=== PATIENT | female | born 1930 | race Hispanic/Latino ===

== ENCOUNTER 2018-06-23 16:16 | Inpatient (IN) | payer MEDICARE ==
[~2018-06-23] VITALS: Ht 160 cm; Wt 59.6 kg
[2018-06-23] MEDS: ALBUTEROL SULF 0.083% NEB SOLN 3 ML NEB NEB SCH (00:12)
[~2018-06-23 16:16] MED LIST: FERROUS SULFAT325 MG PO; OMEPRAZOLE20 MG PO; OXYBUTYNIN CHLOR5 MG PO; PRAVASTATIN SOD10 MG PO; ULTRAM 50MG50 MG PO
[2018-06-23] MEDS ORDERED: IPRATROPIUM BROMIDE 0.02% 2.5 ML NEB NEB STA (16:20)
[2018-06-23] MEDS ORDERED: ALBUTEROL SULF 0.083% NEB SOLN 3 ML NEB NEB STA (16:20)
[2018-06-23] MEDS ORDERED: SODIUM CHLORIDE 0.9% 1000ML 1,000 ML IV STA (16:20)
[2018-06-23 16:39] LABS: BASOPHILS % 0.1 % (0.0-1.0); EOSINOPHILS # (AUTO) 0.1 (0.0-0.4); EOSINOPHILS % 0.7 % (0.0-6.0); HEMATOCRIT 33.5 % (34.2-44.1); HEMOGLOBIN 10.9 g/dL (12.0-16.0); LYMPHOCYTES # (AUTO) 1.1 (1.0-3.2); LYMPHOCYTES % 15.2 % (18.0-39.1); MEAN CORPUSCULAR HEMOGLOBIN 31.1 pg (28-32); MEAN CORPUSCULAR HGB CONC 32.5 g/dL (31-35); MEAN CORPUSCULAR VOLUME 95.7 fL (81-99); MONOCYTES # (AUTO) 0.8 (0.2-0.8); NEUTROPHILS # (AUTO) 5.1 (2.1-6.9); NEUTROPHILS % 72.4 % (38.7-80.0); PLATELET COUNT 336 x10e3/uL (140-360); RED CELL DISTRIBUTION WIDTH 12.6 % (11.7-14.4)
[2018-06-23] MEDS ORDERED: CEFTRIAXONE SOD 1 GM VIAL IV ONE (16:45)
[2018-06-23 16:48] LABS: INR 0.93; PROTHROMBIN TIME 13.3 seconds (11.9-14.5)
[2018-06-23 16:49] LABS: PARTIAL THROMBOPLASTIN TIME 36.7 seconds (23.8-35.5)
[2018-06-23 16:59] LABS: ALANINE AMINOTRANSFERASE 15 IU/L (0-55); ALBUMIN 3.8 g/dL (3.5-5.0); ALKALINE PHOSPHATASE 88 IU/L (40-150); ANION GAP 15.7 mmol/L (8-16); BLOOD UREA NITROGEN 19 mg/dL (7-26); BUN/CREATININE RATIO 24 (6-25); CALCIUM 9.8 mg/dL (8.4-10.2); CARBON DIOXIDE 24 mmol/L (22-29); CHLORIDE 101 mmol/L (98-107); CREATINE KINASE 47 IU/L (29-168); EST GLOMERULAR FILTRATION RATE > 60 ML/MIN (60-); GLUCOSE 115 mg/dL (74-118); LIPASE 39 U/L (8-78); POTASSIUM 3.7 mmol/L (3.5-5.1); SODIUM 137 mmol/L (136-145)
[2018-06-23 17:01] LABS: CLARITY,URINE HAZY (CLEAR); COLOR,URINE YELLOW (YELLOW); LEUKOCYTE ESTERASE ,URINE NEGATIVE (NEGATIVE); NITRITE,URINE NEGATIVE (NEGATIVE)
[2018-06-23 17:02] LABS: BILIRUBIN,URINE NEGATIVE (NEGATIVE); KETONES,URINE NEGATIVE (NEGATIVE); PROTEIN,URINE DIPSTICK NEGATIVE (NEGATIVE); URINE UROBILINOGEN 0.2 mg/dL (0.2 - 1)
[2018-06-23 17:05] LABS: BACTERIA,URINE RARE /HPF; EPITHELIAL CELLS,URINE FEW /LPF; WBC,URINE (MAN) 0-5 /HPF (0-5)
[2018-06-23 17:18] LABS: THYROID STIMULATING HORMONE 1.049 uIU/mL (0.350-4.940)
[2018-06-23] MEDS ORDERED: DOXYCYCLINE HY100 MG PO (17:51)
[2018-06-23] MEDS ORDERED: PREDNISONE1 MG (17:51)
--- NOTE | 2018-06-23 18:05 | Diagnostic Imaging Report ---
EXAMINATION: PA and lateral views of the chest. COMPARISON: None CLINICAL HISTORY: Cough, chest congestion for 8-9 days DISCUSSION: Lines/tubes: None. Lungs: The lungs are well inflated and grossly clear. There is no evidence of pneumonia or pulmonary edema. Pleura: There is no pleural effusion or pneumothorax. Heart and mediastinum: Mild prominence of the cardiac silhouette. Pulmonary vasculature is normal. Bones and soft tissues: No acute bony abnormalities. Degenerative changes in the thoracic spine. Metallic clips in the left axillary region. Left mastectomy. IMPRESSION: No acute cardiopulmonary abnormalities. Signed by: Dr. Neel Benavidez M.D. on 06/23/2018 6:01 PM
[2018-06-23] MEDS ORDERED: AZITHROMYCIN 500MG/SOD CHL 0.9% 250ML BAG IV SCH (18:30)
--- OUTSIDE RECORDS SUMMARY | 2018-06-23 18:50 | XMS REPORT ---
Author Author [facility] Address Unknown Phone Unavailable Care Team Providers Care Embroiderer Name Role Phone Danica JONES Unavailable Unavailable Problems This patient has no known problems. Allergies, Adverse Reactions, Alerts This patient has no known allergies or adverse reactions. Medications This patient has no known medications. Results Test Description Test Time Test Comments Text Results Atomic Results Result Comments CHEST 2 VIEWS 2018-06-23 18:00:00 [facility] [address] [place] [address] Patient Name: TOBIAS DAVIS MR #: [id number] : 1930 Age/Sex: 88/F Req #: [id number] Adm Physician: Ordered by: ALLIE MCCABE AGRIBUSINESS PROFESSOR Report #: [id number] Location: ER Room/Bed: Procedure: [id number] DX/CHEST 2 VIEWS Exam Date: 06/23/18 Exam Time: 1725 REPORT STATUS: Signed EXAMINATION: PA and lateral views of the chest. COM PARISON: None CLINICAL HISTORY: Cough, chest congestion for 8-9 days DISCUSSION: Lines/tubes: None. Lungs: The lungs are well inflated and grossly clear. There is no evidence of pneumonia or pulmonary edema. Pleura: There is no pleural effusion or pneumothorax. Heart and mediastinum: Mild prominence of the cardiac silhouette. Pulmonary vasculature is normal. Bones and soft tissues: No acute bony abnormalities. Degenerative changes in the thoracic spine. Metallic clips in the left axillary region. Left mastectomy. IMPRESSION: No acute c ardiopulmonary abnormalities. Signed by: Dr. Mila Benavidez M.D. on 06/23/2018 6:01 PM Dictated By: MILA BENAVIDEZ MD 00 Transcribed By: CHING on 06/23/181800 COPY TO: ALLIE MCCABE NP
[2018-06-23] MEDS: CEFTRIAXONE SOD 1 GM VIAL IV SCH (18:59)
[2018-06-23] MEDS: SODIUM CHLORIDE 0.9% 1000ML 1,000 ML IV SCH (19:23)
[2018-06-23 20:00] VITALS: BP 133/61
[2018-06-24] VITALS (9 sets, daily range): BP systolic 107–148; BP diastolic 53–67
[2018-06-24] MEDS: IPRATROPIUM BROMIDE 0.02% 2.5 ML NEB NEB SCH ×4 (00:12→19:52)
[2018-06-24] MEDS: ALBUTEROL SULF 0.083% NEB SOLN 3 ML NEB NEB SCH ×3 (03:00→11:02)
[2018-06-24] MEDS: CEFTRIAXONE SOD 1 GM VIAL IV SCH (06:09)
[2018-06-24 08:29] LABS: CREATINE KINASE MB 1.2 ng/mL (0-5.0)
[2018-06-24] MEDS: SODIUM CHLORIDE 0.9% 1000ML 1,000 ML IV SCH (09:36)
[2018-06-24] MEDS ORDERED: FUROSEMIDE INJ 10 MG/ML 2 ML VIAL IV ONE (12:45)
[2018-06-24] MEDS ORDERED: DOCUSATE SODIUM 100 MG CAP PO PRN (12:45)
[2018-06-24] MEDS ORDERED: GUAIFENESIN/CODEINE 10 ML CUP PO PRN (12:45)
[2018-06-24] MEDS ORDERED: CEFTRIAXONE SOD 1 GM VIAL IV SCH (12:45)
[2018-06-24] MEDS ORDERED: ACETAMINOPHEN 325 MG TAB PO PRN (12:45)
--- NOTE | 2018-06-24 14:08 | History and Physical ---
PRESENTING COMPLAINT: Shortness of breath with cough and low-grade fever for 3 days. HISTORY OF PRESENT ILLNESS: This 88-year-old female was admitted from the ER. The patient was brought to the ER by her daughter from home. The patient's daughter is at bedside now. They tell that the patient had cough with low-grade fever since Wednesday. She saw her PCP, Dr. Temo Joyce, in the office. She was given medication along with inhaler. She got IM antibiotic injection. The patient was continued on oral antibiotic at home, but her symptoms did not improve. She went back to see Dr. Joyce again on Wednesday, 2 days ago from today. She was given again antibiotic shot and sent home with advice to come to the ER in case her condition did not improve. The patient's daughter told that her cough worsened. She was making greenish colored sputum with cough and having low-grade fever with generalized body aches. The patient also complained of chest wall pain with shortness of breath. She denied any palpitations. The patient denied any nasal congestion, earache, abdominal pain, nausea, vomiting, diarrhea. The patient did not have any sick contact or travel history. She did not have any similar episode in recent time as per the patient's daughter's statement. The patient was reasonably well at home prior to this illness. She was ambulatory at home with assistance due to her chronic debility and arthritis. The patient denies any other complaints. At the present time, she is afebrile and lying in bed normally. She is verbalizing normally. Denies any complaints other than cough and bilateral leg pain. REVIEW OF SYSTEMS CONSTITUTIONAL: Low-grade fever at presentation. No chills or rigor. EYES AND ENT: No nasal congestion. No visual disturbance. No earache. No sore throat. CARDIOVASCULAR: Chest wall pain with shortness of breath as per HPI. No palpitations. PULMONARY: Cough with greenish sputum and shortness of breath as per HPI. No hemoptysis. GI: No abdominal pain, nausea, vomiting, presence of bloody stool or black stool. Last BM today. No diarrhea. : No dysuria. No hematuria. MUSCULOSKELETAL, SKIN AND LYMPHATIC: The patient has initial leg pain. No joint pain. No skin rash. No swollen gland. NEUROLOGICAL: No loss of consciousness. Denies headache. HISTORY OF PAST MEDICAL ILLNESS 1. Hypertension. 2. Hyperlipidemia. 3. Gastritis. 4. GERD. 5. Diverticulosis. 6. Urinary incontinence. 7. DJD. 8. Breast cancer, status post left mastectomy in remote past. 9. Patient denies history of CAD. 10. Ischemic stroke more than 5 years ago with right facial weakness, which got resolved. HISTORY OF PAST SURGERY 1. Left mastectomy for breast cancer more than 20 years ago. 2. Cholecystectomy. 3. Bladder suspension surgery in 2007 at this hospital. 4. EGD and colonoscopy done in 2012 at [address] Benson as per electronic medical record. No other history of surgery. ALLERGIES: AZITHROMYCIN CAUSED A SKIN RASH LAST NIGHT. HOME MEDICATIONS: List includes: 1. Doxycycline 100 mg b.i.d. 2. Ferrous sulfate 325 mg daily. 3. Omeprazole 20 mg daily. 4. Oxybutynin 5 mg daily. 5. Tramadol 50 mg p.r.n. 6. Pravastatin 10 mg daily. 7. Prednisone 1 mg daily. SOCIAL HISTORY: Patient lives at home with her daughter. She is retired. HABITS: No smoking, drinking or substance abuse history as per the patient's daughter's statement. FAMILY HISTORY: No positive family history of CAD. PHYSICAL EXAMINATION VITALS: BP 136/103, pulse 72, temp 99.2, respirations 20, SpO2 95% to 98% on room air at presentation. Vitals today: BP 133/65, pulse 73, temperature 98.7, respirations 18, SpO2 97% on room air. GENERAL: Alert. Lying in bed without any distress. HEENT: Pupils are equally reacting. No pallor. No icterus. Oral mucosa is moist. NECK: No JVD. No carotid bruit. No lymphadenopathy. No thyromegaly. HEART: S1 and S2 regular. No murmur. LUNGS: Air entry equal on both sides. A few basal fine crackles present. No rhonchi. ABDOMEN: Soft and nontender. No palpable mass. Bowel sounds active in all quadrants. EXTREMITIES: No edema, cyanosis or clubbing. NEUROLOGIC: Muscle strength symmetric on both sides. LAB DATA: CBC: WBC 7.02, hemoglobin 10.9, hematocrit 33.5, platelets 336, MCV 95, RDW 12.6, neutrophils 72, lymphocytes 15. PT 13.3, INR 0.93, PTT 36.7. Chemistry panel: Sodium 137, potassium 3.7, chloride 101, CO2 24, anion gap 12, BUN 19, creatinine 0.8, glucose 115, calcium 9.3, magnesium 2.0, total bilirubin 0.4, AST 17, ALT 15, alk phos 88. CK 47, CK-MB 1.08, troponin 0.002. BNP 109. Total protein 77, albumin 3.8, globulin 3.9, lipase 19. TSH 1.04. Urinalysis: Negative for protein and glucose. Blood 2+. Leukocyte esterase negative. RBCs 11-20. WBCs 0-5. Influenza screening types A and B negative. EKG: Normal sinus rhythm at a rate of 66 beats per minute. No significant ST-T changes. Intervals within normal limits. RADIOLOGICAL DATA: X-ray of the chest, single view: Lungs are well inflated, clear. No evidence of pneumonia or pulmonary edema. No pleural effusion or pneumothorax. Heart size within normal limits. Pulmonary vasculature normal. No bony abnormality. Degenerative changes in the thoracic spine. Metallic clips in the left axillary region. Left mastectomy. ASSESSMENT AND PLAN 1. Low-grade fever with cough and shortness of breath. The patient's chest x-ray is negative for any consolidation of the effusion or infiltrate. The patient likely has acute asthmatic bronchitis versus early pneumonia. Will continue IV antibiotic as started from the ER. The patient had some skin rash from azithromycin. Will discontinue azithromycin. Keep patient on Levaquin IV for now. Follow the sputum culture. 2. Elevated B-type natriuretic peptide. The patient had a cardiac evaluation as an outpatient earlier this year at the office of Dr. Temo Joyce as per the patient's daughter's statement. Cardiac evaluation was normal. She has not followed up with any data processing consultant. Will give 1 dose of Lasix. Will have an echocardiogram. Her EKG is normal. 3. Bilateral leg pain, musculoskeletal pain. The patient has a history of osteoarthritis. Would keep the patient on pain medication. Will have venous Doppler of bilateral lower extremities. 4. Gastroesophageal reflux disease and gastritis by history. Continue the patient on PPI. 5. History of left breast cancer status post mastectomy in the remote past. The patient did not have any history of recurrence. No stigmata of recurrence. Will monitor for now. 6. Deep venous thrombosis prophylaxis. Keep the patient on Lovenox subcutaneously. 7. Microscopic hematuria. Urine culture did not show any growth. The patient has a history of bladder suspension surgery in the past. Would have a CT abdomen using renal stone protocol. If needed, will consult urologist, Dr. Baum, who did the bladder suspension surgery about 10 years ago at this hospital as per the patient's statement. 8. Advanced directive: The patient is full code for now. 9. Discharge plan will depend upon the patient's hospital course. Discussed the plan of care with the patient's daughter at bedside today. Job#: [id number]
[2018-06-24] MEDS: TRAMADOL HCL 50 MG TAB PO PRN ×2 (15:06→23:12)
--- NOTE | 2018-06-24 15:36 | Diagnostic Imaging Report ---
EXAM: CT Abdomen and Pelvis WITHOUT contrast INDICATION: Microscopic hematuria. COMPARISON: None. TECHNIQUE: Abdomen and pelvis were scanned utilizing a multidetector helical scanner from the lung base to the pubic symphysis without administration of IV contrast. Absence of intravenous contrast decreases sensitivity for detection of focal lesions and vascular pathology. Coronal and sagittal reformations were obtained. Routine protocol was performed. IV CONTRAST: None. ORAL CONTRAST: Water RADIATION DOSE: Total DLP: 261.15 mGy*cm Estimated effective dose: (DLP x 0.015 x size factor) mSv COMPLICATIONS: None FINDINGS: LINES and TUBES: None. LOWER THORAX: Coronary artery calcifications. Patchy density in the right middle lobe medially and right lung base may represent scarring, however, cannot exclude active inflammatory/infectious process. Lingular subsegmental atelectasis versus scarring. HEPATOBILIARY: No focal hepatic lesions. No biliary ductal dilation. GALLBLADDER: Surgically absent. SPLEEN: No splenomegaly. PANCREAS: No focal masses or ductal dilatation. ADRENALS: No adrenal nodules. KIDNEYS/URETERS: No hydronephrosis. No cystic or solid mass lesions. No stones. GI TRACT: No abnormal distention, wall thickening, or evidence of bowel obstruction. Diverticulosis predominantly involving the sigmoid colon without CT evidence of diverticulitis. Appendix is identified. PELVIC ORGANS/BLADDER: Status post hysterectomy. Cough and chest congestion. LYMPH NODES: No lymphadenopathy. VESSELS: There is moderate atherosclerotic disease in the aorta and major arterial branches. PERITONEUM / RETROPERITONEUM: No free air or fluid. BONES: Slight retrolisthesis of L2 in relation to L3. Multilevel degenerative disc disease. SOFT TISSUES: Unremarkable. IMPRESSION: 1. No evidence of urolithiasis or obstructive uropathy. If concern for hematuria remains, consider further evaluation with CT abdomen without and with contrast renal mass protocol. 2. Patchy density in the right middle and lower lobes may represent infectious/inflammatory in etiology particularly in patient with recent history of cough and chest congestion. 3. Colonic diverticulosis without diverticulitis. Signed by: Dr. Radha Kiran M.D. on 06/24/2018 3:33 PM
[2018-06-24] MEDS ORDERED: LEVOFLOXACIN 750MG/D5W 150ML 150 ML IV SCH (16:15)
[2018-06-24 16:41] LABS: CREATINE KINASE MB 1.3 ng/mL (0-5.0)
[2018-06-24] MEDS: ENOXAPARIN SOD INJ 40 MG/0.4 ML SYR SC SCH (17:47)
[2018-06-24] MEDS ORDERED: DIPHENHYDRAMINE HCL INJ 50 MG/ML VIAL IV PRN (19:00)
[2018-06-24] MEDS: PRAVASTATIN 20 MG TAB PO SCH (21:45)
[2018-06-24] MEDS: METHYLPREDNISOLONE SOD SUCC 40 MG/ML VIAL IV SCH (21:45)
[2018-06-25] VITALS (8 sets, daily range): BP systolic 114–150; BP diastolic 53–69
[2018-06-25] MEDS: IPRATROPIUM BROMIDE 0.02% 2.5 ML NEB NEB SCH ×3 (01:00→20:09)
[2018-06-25 04:53] LABS: BASOPHILS % 0.3 % (0.0-1.0); HEMATOCRIT 29.4 % (34.2-44.1); HEMOGLOBIN 9.9 g/dL (12.0-16.0); LYMPHOCYTES # (AUTO) 0.6 (1.0-3.2); MEAN CORPUSCULAR HEMOGLOBIN 31.4 pg (28-32); MEAN CORPUSCULAR HGB CONC 33.7 g/dL (31-35); MEAN CORPUSCULAR VOLUME 93.3 fL (81-99); MONOCYTES # (AUTO) 0.1 (0.2-0.8); MONOCYTES % 1.8 % (4.4-11.3); NEUTROPHILS # (AUTO) 3.3 (2.1-6.9); NEUTROPHILS % 82.4 % (38.7-80.0); PLATELET COUNT 315 x10e3/uL (140-360); RED BLOOD COUNT 3.15 x10e6/uL (3.6-5.1); RED CELL DISTRIBUTION WIDTH 12.5 % (11.7-14.4)
[2018-06-25 05:12] LABS: ALANINE AMINOTRANSFERASE 11 IU/L (0-55); ALBUMIN 3.2 g/dL (3.5-5.0); ALBUMIN/GLOBULIN RATIO 0.9 (0.8-2.0); ALKALINE PHOSPHATASE 74 IU/L (40-150); BLOOD UREA NITROGEN 15 mg/dL (7-26); BUN/CREATININE RATIO 21 (6-25); CALCIUM 9.7 mg/dL (8.4-10.2); CARBON DIOXIDE 26 mmol/L (22-29); CHLORIDE 101 mmol/L (98-107); CHOL/HDL RATIO 3.1 (3.0-3.6); CHOLESTEROL 150 MD/DL (0-199); CREATININE, SERUM 0.72 mg/dL (0.57-1.11); EST GLOMERULAR FILTRATION RATE > 60 ML/MIN (60-); GLUCOSE 145 mg/dL (74-118); HDL CHOLESTEROL 48 MG/DL (40-60); LDL CHOLESTEROL 91 MG/DL (60-130); SODIUM 136 mmol/L (136-145); TRIGLYCERIDES 55 MG/DL (0-149)
[2018-06-25] MEDS: SODIUM CHLORIDE 0.9% 1000ML 1,000 ML IV SCH (05:30)
[2018-06-25 05:32] LABS: THYROID STIMULATING HORMONE 0.824 uIU/mL (0.350-4.940)
[2018-06-25 06:11] LABS: ERYTHROCYTE SEDIMENTATION RATE 78 mm/hr (0-20)
[2018-06-25] MEDS ORDERED: NON-FORMULARY MEDICATION (Pravastatin Sodium 10 MG) PO SCH (09:00)
[2018-06-25] MEDS: METHYLPREDNISOLONE SOD SUCC 40 MG/ML VIAL IV SCH ×2 (09:50→21:22)
[2018-06-25] MEDS: OXYBUTYNIN CHLORIDE 5 MG TAB PO SCH (09:51)
[2018-06-25] MEDS: PANTOPRAZOLE SOD 40 MG TABEC PO SCH (09:51)
[2018-06-25] MEDS: FERROUS SULFATE 325 MG TAB PO SCH (09:51)
[2018-06-25] MEDS: TRAMADOL HCL 50 MG TAB PO PRN ×2 (10:30→21:22)
--- NOTE | 2018-06-25 10:30 | Consultation ---
DATE OF CONSULTATION: June 25, 2018 CONSULTATION IS CALLED BY: Dr. Huston. REASON FOR CONSULTATION: Microscopic hematuria. HISTORY OF PRESENT ILLNESS: Ms. Denisse Herrera is an 88-year-old female patient admitted to the hospital as an outpatient to treat community-acquired pneumonia. Urologically, consultation was requested for microscopic hematuria. On speaking to the patient and her daughter, they denied having a urologist. Report reviewing the chart, the patient had seen Dr. Baum in approximately 2008 when she had undergone a sacral colpopexy after previous failed bladder suspension. Urologically, they denied gross hematuria. Does have urinary incontinence. Denied fevers, no chills, nausea, and no vomiting. PAST MEDICAL HISTORY: Hypertension, hyperlipidemia, gastritis, gastroesophageal reflux disease, diverticulosis, positive urinary incontinence, breast cancer, status post left mastectomy, degenerative joint disease, ischemic stroke with right facial weakness, status post cholecystectomy, status post bladder suspension in 2007, and status post sacral colpopexy, hysterectomy by Dr. Motniel and Dr. Baum in 2008. MEDICATIONS: Please see MAR. ALLERGIES: AZITHROMYCIN. SOCIAL HISTORY: No smoking and no drinking. FAMILY HISTORY: Denied urologic stones or malignancies. REVIEW OF SYSTEMS: Noncontributory other than problems mentioned above for 12 organ systems. PHYSICAL EXAMINATION GENERAL: Elderly female in no acute distress. Currently she is afebrile with stable vital signs. HEENT: Sclerae anicteric. NECK: Supple. BACK: Without costovertebral angle tenderness bilaterally. ABDOMEN: Soft. It is nontender. It is nondistended. No palpable mass. No palpable hernias. No palpable lymphadenopathy. : Normal female external genitalia. EXTREMITIES: No edema. NEUROMUSCULAR: Moves extremities. PSYCH: Awake, alert, and appropriate. SKIN: Intact. Normal color. PERTINENT LABORATORY DATA: Hemoglobin 9.9, hematocrit 29, platelet count 315,000, and white cell count 3999. Sodium 138, potassium 4.0, chloride 101, and bicarb 26. BUN 15. Creatinine 0.73. Glucose 145. Urinalysis 11 to 20 reds, 0 to 3 whites. PT of 13.3. PTT of 36.7. PERTINENT IMAGING: CT scan on June 24 which is an impression of normal genitourinary system, patchy density in the right middle lower lobes consistent with pneumonia, colonic diverticulosis, and status post hysterectomy. IMPRESSION 1. Microscopic hematuria. 2. Leukopenia. 3. Urinary incontinence. 4. Hypertension. PLAN 1. Electively, the patient will need a cystoscopy which can safely be performed as an outpatient for leukopenia. Defer the primary service. 2. Urinary incontinence, it should benefit from an outpatient urodynamic studies. 3. The patient's hypertension, defer the primary service. Thank you for allowing me to participate in the care of your patient. We will be happy to follow along with you. Job#: [id number] ALEXANDREA cc:DR. CHARIS BARAJAS
[2018-06-25] MEDS: LEVOFLOXACIN 750MG/D5W 150ML 150 ML IV SCH (13:30)
[2018-06-25] MEDS: DIPHENHYDRAMINE HCL 25 MG CAP PO PRN (14:00)
[2018-06-25] MEDS: ENOXAPARIN SOD INJ 40 MG/0.4 ML SYR SC SCH (17:23)
[2018-06-25] MEDS: PRAVASTATIN 20 MG TAB PO SCH (21:22)
[2018-06-26] VITALS (8 sets, daily range): BP systolic 113–132; BP diastolic 55–65
[2018-06-26] MEDS: IPRATROPIUM BROMIDE 0.02% 2.5 ML NEB NEB SCH ×4 (01:10→19:43)
[2018-06-26] MEDS: ALBUTEROL SULF 0.083% NEB SOLN 3 ML NEB NEB PRN ×3 (01:10→13:04)
[2018-06-26 05:13] LABS: BASOPHILS % 0.1 % (0.0-1.0); HEMATOCRIT 29.2 % (34.2-44.1); HEMOGLOBIN 9.5 g/dL (12.0-16.0); LYMPHOCYTES # (AUTO) 0.8 (1.0-3.2); LYMPHOCYTES % 10.6 % (18.0-39.1); MEAN CORPUSCULAR HEMOGLOBIN 30.5 pg (28-32); MEAN CORPUSCULAR HGB CONC 32.5 g/dL (31-35); MEAN CORPUSCULAR VOLUME 93.9 fL (81-99); MONOCYTES # (AUTO) 0.4 (0.2-0.8); MONOCYTES % 5.5 % (4.4-11.3); NEUTROPHILS # (AUTO) 5.9 (2.1-6.9); NEUTROPHILS % 83.1 % (38.7-80.0); PLATELET COUNT 350 x10e3/uL (140-360); RED BLOOD COUNT 3.11 x10e6/uL (3.6-5.1); RED CELL DISTRIBUTION WIDTH 12.7 % (11.7-14.4)
[2018-06-26 05:31] LABS: ANION GAP 13.5 mmol/L (8-16); BLOOD UREA NITROGEN 21 mg/dL (7-26); BUN/CREATININE RATIO 28 (6-25); CALCIUM 9.7 mg/dL (8.4-10.2); CARBON DIOXIDE 26 mmol/L (22-29); CHLORIDE 102 mmol/L (98-107); CREATININE, SERUM 0.76 mg/dL (0.57-1.11); EST GLOMERULAR FILTRATION RATE > 60 ML/MIN (60-); GLUCOSE 133 mg/dL (74-118); POTASSIUM 4.5 mmol/L (3.5-5.1); SODIUM 137 mmol/L (136-145)
[2018-06-26 06:03] LABS: FERRITIN 326.04 ng/mL (4.63-204.00)
[2018-06-26] MEDS: METHYLPREDNISOLONE SOD SUCC 40 MG/ML VIAL IV SCH (09:28)
[2018-06-26] MEDS: OXYBUTYNIN CHLORIDE 5 MG TAB PO SCH (09:29)
[2018-06-26] MEDS: LOSARTAN POTASSIUM 25 MG TAB PO SCH (09:29)
[2018-06-26] MEDS: FERROUS SULFATE 325 MG TAB PO SCH (09:29)
[2018-06-26] MEDS: PANTOPRAZOLE SOD 40 MG TABEC PO SCH (09:29)
[2018-06-26] MEDS: TRAMADOL HCL 50 MG TAB PO PRN ×2 (09:30→19:49)
[2018-06-26] MEDS: LEVOFLOXACIN 750MG/D5W 150ML 150 ML IV SCH (16:10)
[2018-06-26] MEDS: ENOXAPARIN SOD INJ 40 MG/0.4 ML SYR SC SCH (16:10)
[2018-06-26] MEDS: DIPHENHYDRAMINE HCL 25 MG CAP PO PRN (17:00)
[2018-06-26] MEDS: PRAVASTATIN 20 MG TAB PO SCH (20:47)
[2018-06-27] MEDS: IPRATROPIUM BROMIDE 0.02% 2.5 ML NEB NEB SCH ×4 (01:01→19:30)
[2018-06-27 04:13] VITALS: BP 151/68
[2018-06-27 04:58] LABS: BASOPHILS % 0.1 % (0.0-1.0); EOSINOPHILS % 0.1 % (0.0-6.0); HEMATOCRIT 28.3 % (34.2-44.1); HEMOGLOBIN 9.1 g/dL (12.0-16.0); LYMPHOCYTES # (AUTO) 2.2 (1.0-3.2); LYMPHOCYTES % 24.5 % (18.0-39.1); MEAN CORPUSCULAR HEMOGLOBIN 30.4 pg (28-32); MEAN CORPUSCULAR HGB CONC 32.2 g/dL (31-35); MEAN CORPUSCULAR VOLUME 94.6 fL (81-99); MONOCYTES # (AUTO) 0.9 (0.2-0.8); MONOCYTES % 10.2 % (4.4-11.3); NEUTROPHILS # (AUTO) 5.7 (2.1-6.9); NEUTROPHILS % 64.5 % (38.7-80.0); PLATELET COUNT 368 x10e3/uL (140-360); RED BLOOD COUNT 2.99 x10e6/uL (3.6-5.1); RED CELL DISTRIBUTION WIDTH 12.8 % (11.7-14.4)
[2018-06-27 05:31] LABS: ANION GAP 11.9 mmol/L (8-16); BLOOD UREA NITROGEN 25 mg/dL (7-26); BUN/CREATININE RATIO 34 (6-25); CALCIUM 9.1 mg/dL (8.4-10.2); CARBON DIOXIDE 26 mmol/L (22-29); CHLORIDE 101 mmol/L (98-107); CREATININE, SERUM 0.73 mg/dL (0.57-1.11); EST GLOMERULAR FILTRATION RATE > 60 ML/MIN (60-); GLUCOSE 94 mg/dL (74-118); POTASSIUM 3.9 mmol/L (3.5-5.1); SODIUM 135 mmol/L (136-145)
[2018-06-27 07:40] VITALS: BP 126/66
[2018-06-27 08:00] VITALS: BP 126/66
[2018-06-27] MEDS: LOSARTAN POTASSIUM 25 MG TAB PO SCH (09:02)
[2018-06-27] MEDS: FERROUS SULFATE 325 MG TAB PO SCH (09:06)
[2018-06-27] MEDS: PANTOPRAZOLE SOD 40 MG TABEC PO SCH (09:06)
[2018-06-27] MEDS: OXYBUTYNIN CHLORIDE 5 MG TAB PO SCH (09:06)
[2018-06-27] MEDS: TRAMADOL HCL 50 MG TAB PO PRN ×2 (09:11→18:18)
[2018-06-27 12:00] VITALS: BP 137/64
[2018-06-27] MEDS: LEVOFLOXACIN 750MG/D5W 150ML 150 ML IV SCH (15:26)
[2018-06-27] MEDS: ENOXAPARIN SOD INJ 40 MG/0.4 ML SYR SC SCH (16:40)
[2018-06-27 16:45] VITALS: BP 102/51
[2018-06-27 20:19] VITALS: BP 124/58
[2018-06-27] MEDS: PRAVASTATIN 20 MG TAB PO SCH (21:10)
[2018-06-27] MEDS: DIPHENHYDRAMINE HCL 25 MG CAP PO PRN (21:50)
[2018-06-28] MEDS: IPRATROPIUM BROMIDE 0.02% 2.5 ML NEB NEB SCH ×2 (02:50→06:30)
[2018-06-28 06:50] VITALS: BP 129/59
[2018-06-28 08:00] VITALS: BP 125/66
[2018-06-28] MEDS: PANTOPRAZOLE SOD 40 MG TABEC PO SCH (08:51)
[2018-06-28] MEDS: FERROUS SULFATE 325 MG TAB PO SCH (08:51)
[2018-06-28] MEDS: OXYBUTYNIN CHLORIDE 5 MG TAB PO SCH (08:51)
[2018-06-28] MEDS: LOSARTAN POTASSIUM 25 MG TAB PO SCH (08:52)
[2018-06-28 09:00] VITALS: BP 125/66
--- NOTE | 2018-06-28 11:04 | Discharge Summary ---
She is a 88-year-old female patient of mine, presented to the emergency room with a complaint of shortness of breath, cough, and fever. ADMITTING IMPRESSION/DIAGNOSES 1. Multilobar pneumonia, right middle lobe and lower lobe pneumonia. 2. Microscopic hematuria. 3. Arthritis. 4. Atrial fibrillation by history. 5. Diastolic chronic heart failure. 6. Hypertension. 7. Anemia. 8. Severe osteoarthritis, currently reduced. 9. Peripheral artery disease. HOSPITAL COURSE SUMMARY: Patient was admitted with the above diagnoses. Patient was treated with IV Levaquin, Rocephin, neb treatment, and Solu-Medrol. Patient has urology consult done by Dr. Pandya and Dr. Baum. Patient will be getting outpatient cystoscopic evaluation. Patient's blood culture was negative. Urine culture had 10,000 to 51778 mixed gretchen. Respiratory gretchen was present. The patent has a CT scan of the abdomen and pelvis done. Patient did not have any stone, but patient has patchy density in the right middle lobe and lower lobe and chronic diverticulosis. Patient has a venous Doppler done, which was negative for DVT. Patient was given Novamox. Patient was given neb treatment. Now upon stabilization, patient will be discharged home and followed up as outpatient. MILAGRO BARAJAS MD Job#: [id number] ALEXANDREA
== END 2018-06-28 11:03 | disposition home or self-care (01) | DRG 194 ==
LOC: ER 16:16 → ERHOLD 18:23 → MED/SURG2 20:22 → OBSVTOIN 06-24 12:58
PROVIDERS: ADMIT Internal Medicine; ATTEND Internal Medicine
DX: J15.9 Unspecified bacterial pneumonia (principal); I50.32 Chronic diastolic (congestive) heart failure; M79.605 Pain in left leg; M79.604 Pain in right leg; K21.9 Gastro-esophageal reflux disease without esophagitis; K29.70 Gastritis, unspecified, without bleeding; Z85.3 Personal history of malignant neoplasm of breast; R31.29 Other microscopic hematuria; I11.0 Hypertensive heart disease with heart failure; I73.9 Peripheral vascular disease, unspecified; I48.91 Unspecified atrial fibrillation; Z79.01 Long term (current) use of anticoagulants; M19.90 Unspecified osteoarthritis, unspecified site; R32 Unspecified urinary incontinence; D72.819 Decreased white blood cell count, unspecified; I25.10 Atherosclerotic heart disease of native coronary artery without angina pectoris
CPT/HCPCS: 36415; 71046; 74176; 80048; 80053; 80061; 81001; 82270; 82550; 82553; 82728; 83036; 83540; 83690; 83735; 83880; 84443; 84466; 84484; 84550; 85025; 85379; 85610; 85651; 85730; 86803; 87040; 87070; 87086; 87205; 87400; 93005; 93306; 93970; 94640; 97139; 99284; G0378; J0456; J0696; J1650; J1940; J2920; J7030

== ENCOUNTER → 2019-03-28 | Outpatient (CLI) | payer MEDICARE ==
[~2019-03-28] MED LIST changes: +DOXYCYCLINE HY100 MG PO; +PREDNISONE1 MG
--- NOTE | 2019-03-28 16:38 | Diagnostic Imaging Report ---
EXAM: SACRUM X-RAY, SP LUMBAR, COMPLETE MIN 4VW, THORACIC SPINE 2VW DATE: 03/28/2019 2:59 PM INDICATION: Lumbar spondylosis COMPARISON: None FINDINGS: Thoracic spine: There is no evidence for acute fracture or dislocation. Bony mineralization appears diffusely decreased No focal lytic or blastic abnormality is identified. Vertebral body heights are maintained. There is thoracic kyphosis. Thoracic spinal alignment is otherwise unremarkable. The visualized lungs are clear. Lumbar spine: There are 5 nonrib-bearing lumbar type vertebral bodies. There is no evidence for acute fracture or dislocation. Bony mineralization is diffusely decreased. No focal lytic or blastic abnormality is identified. Vertebral body heights are maintained. There is mild levoscoliosis of the lumbar spine. There is minimal/grade I retrolisthesis of L2 on L3. There are degenerative changes of the lower lumbar spine were there is facet arthropathy which may be contributing to neural foraminal narrowing. The visualized intra-abdominal contents are unremarkable. Sacrum: There is no evidence for acute fracture or dislocation. Bony mineralization appears diffusely decreased. No focal lytic or blastic abnormality is identified. There are symmetric degenerative changes of the SI joints. The visualized pelvic contents are unremarkable. IMPRESSION: No acute radiographic abnormality identified within the thoracolumbar spine or sacrum. Degenerative changes of the lumbosacral spine. Signed by: Dr. Hamilton Otto MD on 03/28/2019 4:35 PM
== END ==
LOC: RAD 14:45
PROVIDERS: ATTEND Internal Medicine
DX: M51.37 Other intervertebral disc degeneration, lumbosacral region (principal); M54.6 Pain in thoracic spine
CPT/HCPCS: 72070; 72110; 72220

== ENCOUNTER 2020-11-12 11:49 | Observation (INO) | payer MEDICARE ==
[~2020-11-12] VITALS: Ht 160 cm; Wt 59.4 kg
[2020-11-12] VITALS (8 sets, daily range): BP systolic 118–150; BP diastolic 51–61
[2020-11-12] MEDS ORDERED: ASPIRIN 81 MG CHEW TAB PO ONE ×2 (12:15→14:00)
[2020-11-12] MEDS ORDERED: GLUCAGON FOR INJ 1 MG VIAL IV STA (12:16)
[2020-11-12] MEDS ORDERED: SODIUM CHLORIDE 0.9% 1000ML 1,000 ML IV STA (12:16)
[2020-11-12] MEDS ORDERED: METOPROLOL TART25 MG PO (12:21)
[2020-11-12] MEDS ORDERED: KLOR-CON 88 MEQ PO (12:21)
[2020-11-12] MEDS ORDERED: BACLOFEN10 MG PO (12:21)
[2020-11-12] MEDS ORDERED: AMIODARONE HCL200 MG PO (12:21)
[2020-11-12] MEDS ORDERED: CALCIUM GLUCONATE 10% INJ 4.65 MEQ in SODIUM CHLORIDE 0.9% 50ML 50 ML IV ONE (12:30)
[2020-11-12 12:31] LABS: BASOPHILS % 0.7 % (0.0-1.0); EOSINOPHILS # (AUTO) 0.1 (0.0-0.4); EOSINOPHILS % 0.8 % (0.0-6.0); HEMATOCRIT 34.5 % (34.2-44.1); HEMOGLOBIN 11.1 g/dL (12.0-16.0); LYMPHOCYTES # (AUTO) 1.3 (1.0-3.2); LYMPHOCYTES % 20.7 % (18.0-39.1); MEAN CORPUSCULAR HEMOGLOBIN 31.1 pg (28-32); MEAN CORPUSCULAR HGB CONC 32.2 g/dL (31-35); MEAN CORPUSCULAR VOLUME 96.6 fL (81-99); MONOCYTES # (AUTO) 0.6 (0.2-0.8); MONOCYTES % 10.2 % (4.4-11.3); NEUTROPHILS # (AUTO) 4.1 (2.1-6.9); NEUTROPHILS % 66.9 % (38.7-80.0); PLATELET COUNT 302 x10e3/uL (140-360); RED BLOOD COUNT 3.57 x10e6/uL (3.6-5.1); RED CELL DISTRIBUTION WIDTH 13.8 % (11.7-14.4)
[2020-11-12 12:44] LABS: ALBUMIN 4.2 g/dL (3.5-5.0); ALBUMIN/GLOBULIN RATIO 1.4 (0.8-2.0); ANION GAP 14.7 mmol/L (8-16); CALCIUM 8.7 mg/dL (8.4-10.2); CREATININE, SERUM 1.02 mg/dL (0.57-1.11); POTASSIUM 4.7 mmol/L (3.5-5.1)
[2020-11-12 12:52] LABS: CREATINE KINASE MB 1.3 ng/mL (0-5.0)
[2020-11-12] MEDS ORDERED: ONDANSETRON HCL INJ 2MG/ML 2ML 2 MG/ML VIAL IV PRN ×2 (14:00→21:00)
[2020-11-12] MEDS ORDERED: MORPHINE SULFATE INJ 2 MG/ML SYR IV PRN (14:00)
[2020-11-12 20:36] LABS: CREATINE KINASE MB 1.5 ng/mL (0-5.0)
[2020-11-12] MEDS ORDERED: KETOROLAC TROMETHAMINE 30 MG/ML VIAL IV PRN (21:00)
[2020-11-12] MEDS ORDERED: ACETAMINOPHEN 325 MG TAB PO PRN (21:00)
[2020-11-13] VITALS: BP 151/63
[2020-11-13] MEDS ORDERED: BENZONATATE 100 MG CAP PO PRN (01:15)
[2020-11-13] MEDS ORDERED: POTASSIUM CHLORIDE 20 MEQ TAB CR PO PRN (01:15)
[2020-11-13] MEDS ORDERED: DOCUSATE SODIUM 100 MG CAP PO PRN (01:15)
[2020-11-13] MEDS ORDERED: SIMETHICONE 80 MG CHEW PO PRN (01:15)
[2020-11-13] MEDS ORDERED: DIPHENHYDRAMINE HCL 25 MG CAP PO PRN (01:15)
[2020-11-13] MEDS ORDERED: DEXTROSE 50% SYRINGE 50 ML IV PRN (01:15)
[2020-11-13] MEDS ORDERED: POLYETHYLENE GLYCOL 3350 17 GM PACK PO PRN (01:15)
[2020-11-13] MEDS ORDERED: HYDRALAZINE HCL 20 MG/ML VIAL IV PRN (01:15)
[2020-11-13] MEDS ORDERED: ONDANSETRON HCL INJ 2MG/ML 2ML 2 MG/ML VIAL IV PRN (01:15)
[2020-11-13] MEDS ORDERED: MORPHINE SULFATE INJ 2 MG/ML SYR IV PRN (02:00)
[2020-11-13 04:00] VITALS: BP 142/67
[2020-11-13 04:59] LABS: BASOPHILS # (AUTO) 0.1 (0.0-0.1); BASOPHILS % 1.1 % (0.0-1.0); EOSINOPHILS # (AUTO) 0.2 (0.0-0.4); EOSINOPHILS % 3.3 % (0.0-6.0); HEMATOCRIT 31.3 % (34.2-44.1); HEMOGLOBIN 10.1 g/dL (12.0-16.0); LYMPHOCYTES # (AUTO) 1.4 (1.0-3.2); MEAN CORPUSCULAR HEMOGLOBIN 30.8 pg (28-32); MEAN CORPUSCULAR HGB CONC 32.3 g/dL (31-35); MEAN CORPUSCULAR VOLUME 95.4 fL (81-99); MONOCYTES # (AUTO) 0.6 (0.2-0.8); MONOCYTES % 12.9 % (4.4-11.3); NEUTROPHILS # (AUTO) 2.3 (2.1-6.9); PLATELET COUNT 256 x10e3/uL (140-360); RED BLOOD COUNT 3.28 x10e6/uL (3.6-5.1); RED CELL DISTRIBUTION WIDTH 13.5 % (11.7-14.4)
[2020-11-13 05:23] LABS: ALBUMIN 3.6 g/dL (3.5-5.0); ALBUMIN/GLOBULIN RATIO 1.5 (0.8-2.0); ANION GAP 11.6 mmol/L (8-16); CALCIUM 8.2 mg/dL (8.4-10.2); CREATININE, SERUM 0.95 mg/dL (0.57-1.11); POTASSIUM 4.6 mmol/L (3.5-5.1)
[2020-11-13 05:57] LABS: CHOL/HDL RATIO 2.5 (3.0-3.6); MAGNESIUM 1.9 MG/DL (1.3-2.1); PHOSPHORUS 4.1 MG/DL (2.3-4.7)
[2020-11-13 06:06] LABS: THYROID STIMULATING HORMONE 3.954 uIU/mL (0.350-4.940)
[2020-11-13 06:10] LABS: CREATINE KINASE MB 1.3 ng/mL (0-5.0)
[2020-11-13 07:20] VITALS: BP 142/58
[2020-11-13] MEDS: PANTOPRAZOLE SOD 40 MG TABEC PO SCH (07:30)
[2020-11-13 08:00] VITALS: BP 147/58
[2020-11-13 11:34] VITALS: BP 143/71
[2020-11-13 15:19] LABS: CREATINE KINASE MB 1.2 ng/mL (0-5.0)
[2020-11-13 15:33] VITALS: BP 160/68
== END 2020-11-13 17:39 | disposition home or self-care (01) ==
LOC: ER 12:06 → ERHOLD 13:52 → MED/SURG 16:05
PROVIDERS: ADMIT Internal Medicine; ATTEND Internal Medicine
DX: R07.89 Other chest pain (principal); I10 Essential (primary) hypertension; M19.90 Unspecified osteoarthritis, unspecified site; Z86.73 Personal history of transient ischemic attack (TIA), and cerebral infarction without residual deficits; Z88.1 Allergy status to other antibiotic agents; R00.1 Bradycardia, unspecified; I48.0 Paroxysmal atrial fibrillation; Z20.822 Contact with and (suspected) exposure to COVID-19
CPT/HCPCS: 36415 ×2; 71045; 80053 ×2; 80061; 82550 ×2; 82553 ×2; 82948; 83036; 83735; 83880; 84100; 84443; 84484 ×2; 85025 ×2; 93005; 93306; 97116; 97161; 99251; 99284; G0378 ×2; J0610; J1610; J1885; J7030; S0164; U0002